=== PATIENT | male | born 1975 | race Caucasian/White ===

== ENCOUNTER 2022-06-19 23:32 | Emergency (ER) | payer BC ==
[~2022-06-19] VITALS: Ht 175.3 cm; Wt 95.5 kg
[2022-06-19 23:55] VITALS: BP 147/96
== END 2022-06-20 00:57 ==
LOC: ER 23:32
DX: Z04.1 Encounter for examination and observation following transport accident (principal); Z72.89 Other problems related to lifestyle; Z79.899 Other long term (current) drug therapy; V87.7XXA Person injured in collision between other specified motor vehicles (traffic), initial encounter; Y93.89 Activity, other specified; Y92.488 Other paved roadways as the place of occurrence of the external cause; Y99.8 Other external cause status
CPT/HCPCS: 99283